=== PATIENT | female | born 1960 | race American Indian/Alaskan Native ===

== ENCOUNTER → 2017-04-24 15:20 | Outpatient (CLI) | payer BC ==
[~2017-04-24 15:20] MED LIST: LISINOPRIL10 MG
== END | disposition home or self-care (01) ==
LOC: PPHC 15:20
DX: Z00.00 Encounter for general adult medical examination without abnormal findings (principal); M25.562 Pain in left knee; M25.462 Effusion, left knee; R26.2 Difficulty in walking, not elsewhere classified

== ENCOUNTER 2017-04-25 09:37 | Outpatient (CLI) | payer OTHER | END 2017-04-25 10:42 | disposition home or self-care (01) | LOC: RAD 09:37 | DX: M25.562 Pain in left knee (principal) ==

== ENCOUNTER 2017-06-05 08:07 | Outpatient (CLI) | payer OTHER | END 2017-06-05 14:20 | disposition home or self-care (01) | LOC: MRI 08:07 | DX: M25.562 Pain in left knee (principal); M25.462 Effusion, left knee; M25.9 Joint disorder, unspecified | CPT/HCPCS: 73721 ==

== ENCOUNTER 2017-10-07 12:17 | Outpatient (CLI) | payer BC | END 2017-10-07 16:29 | disposition home or self-care (01) | LOC: RAD 501 12:17 | DX: M79.641 Pain in right hand (principal) ==

== ENCOUNTER 2017-10-10 10:32 | Outpatient (CLI) | payer BC | END 2017-10-10 10:56 | disposition home or self-care (01) | LOC: LAB 10:32 | DX: Z00.00 Encounter for general adult medical examination without abnormal findings (principal); C50.911 Malignant neoplasm of unspecified site of right female breast; E55.9 Vitamin D deficiency, unspecified; E03.8 Other specified hypothyroidism; E78.2 Mixed hyperlipidemia ==

== ENCOUNTER → 2017-10-21 07:40 | Outpatient (CLI) | payer BC | END | disposition home or self-care (01) | LOC: LAB 07:40 | DX: C50.911 Malignant neoplasm of unspecified site of right female breast (principal) ==

== ENCOUNTER 2017-11-11 08:25 | Outpatient (CLI) | payer BC | END 2017-11-11 08:57 | disposition home or self-care (01) | LOC: LAB 08:25 | DX: D64.89 Other specified anemias (principal); E78.00 Pure hypercholesterolemia, unspecified ==

== ENCOUNTER 2018-02-28 08:27 | Outpatient (CLI) | payer BC | END 2018-02-28 08:33 | disposition home or self-care (01) | LOC: LAB 08:27 | DX: E78.00 Pure hypercholesterolemia, unspecified (principal); C50.012 Malignant neoplasm of nipple and areola, left female breast; C50.011 Malignant neoplasm of nipple and areola, right female breast; E55.9 Vitamin D deficiency, unspecified ==

== ENCOUNTER 2018-12-06 08:28 | Outpatient (CLI) | payer BC | END 2018-12-06 08:50 | disposition home or self-care (01) | LOC: LAB 08:28 | DX: M13.0 Polyarthritis, unspecified (principal); M06.9 Rheumatoid arthritis, unspecified ==

== ENCOUNTER 2018-12-22 13:21 | Outpatient (CLI) | payer BC | END 2018-12-22 13:30 | disposition home or self-care (01) | LOC: MAMO-SONO 13:21 → SONOGRAMA 13:21 → MAMO-SONO 13:30 | DX: Z85.3 Personal history of malignant neoplasm of breast (principal) ==

== ENCOUNTER 2019-06-20 07:57 | Outpatient (CLI) | payer BC | END 2019-06-20 08:12 | disposition home or self-care (01) | LOC: LAB 07:57 | DX: C50.011 Malignant neoplasm of nipple and areola, right female breast (principal); C50.012 Malignant neoplasm of nipple and areola, left female breast; E78.00 Pure hypercholesterolemia, unspecified; E78.1 Pure hyperglyceridemia; J15.7 Pneumonia due to Mycoplasma pneumoniae; J10.89 Influenza due to other identified influenza virus with other manifestations ==

== ENCOUNTER → 2020-02-09 | Outpatient (CLI) | payer BC | END | disposition home or self-care (01) | LOC: MAMO-SONO 08:40 | PROVIDERS: ATTEND Obstetrics & Gynecology Maternal & Fetal Medicine | DX: Z12.31 Encounter for screening mammogram for malignant neoplasm of breast (principal); N64.4 Mastodynia; N60.11 Diffuse cystic mastopathy of right breast; N63.10 Unspecified lump in the right breast, unspecified quadrant; N63.20 Unspecified lump in the left breast, unspecified quadrant ==

== ENCOUNTER 2020-06-15 06:20 | Day surgery (SDC) | payer BC ==
[~2020-06-15 06:20] MED LIST changes: +ETODOLAC200 MG PO; +ROSUVASTATIN CAL5 MG PO
== END 2020-06-15 10:45 | disposition home or self-care (01) ==
LOC: CIR.AMB 06:20
PROVIDERS: ATTEND Obstetrics & Gynecology Maternal & Fetal Medicine
DX: N84.0 Polyp of corpus uteri (principal); Z20.822 Contact with and (suspected) exposure to COVID-19

== ENCOUNTER 2021-06-07 11:50 | Outpatient (CLI) | payer BC | END 2021-06-07 11:52 | disposition home or self-care (01) | LOC: MAMO-SONO 11:50 | PROVIDERS: ATTEND Obstetrics & Gynecology Maternal & Fetal Medicine | DX: N63 Unspecified lump in breast (principal); Z12.31 Encounter for screening mammogram for malignant neoplasm of breast; N64.4 Mastodynia; N60.11 Diffuse cystic mastopathy of right breast; M81.0 Age-related osteoporosis without current pathological fracture ==

== ENCOUNTER 2021-06-17 10:57 | Outpatient (CLI) | payer BC | END 2021-06-19 13:42 | disposition home or self-care (01) | LOC: RAD 10:57 | DX: M54.2 Cervicalgia (principal); M54.50 Low back pain, unspecified; M99.05 Segmental and somatic dysfunction of pelvic region; M54.6 Pain in thoracic spine ==